=== PATIENT | male | born 1975 | race Caucasian/White ===

== ENCOUNTER 2024-05-30 12:36 | Emergency (ER) | payer OTHER, SELFPAY ==
[2024-05-30 12:38] VITALS: BP 155/94
--- NOTE | 2024-05-30 13:55 | ED.GENMED ---
History of Present Illness
General
Chief Complaint: Skin Problem
Source: patient
Exam Limitations: none
Time Seen by Provider: 05/30/24 13:03
Nursing documentation reviewed up to this point in time: agreed with
History of Present Illness
History of Present Illness:
Patient is a 49-year-old male who presents to the ER for evaluation. Patient reports yesterday he noticed a little swelling around his left nose and left face and lip area and today swelling was increased. He does feel an area of soreness in his
left nose. He has been blowing his nose a lot and also using his fingers in his nose. He denies any numbness tingling to this area. He denies any fever or chills. He denies any pain.
In addition patient reports on Tuesday he removed a deer tick from his right chest and is concerned about Lyme. He denies any joint pain rash/bull's-eye/fever chills/body aches. Denies any headache neck pain.
Past History
Past History
ED Past Medical History: None
ED Past Surgical History: None
Social History
Tobacco: Non-smoker
Personal: Single
Living: with family
Employment: Employed
Review of Systems
Review of Systems
Allergies reviewed?: Yes
All Other Systems: ROS reviewed and negative except as documented in HPI and ROS
Constitutional: Reports no symptoms; Denies fever, fatigue or chills
EENT: Reports other (swelling to left nostril region )
Respiratory: Reports no symptoms
Cardiac: Reports no symptoms
ABD/GI: Reports no symptoms
Musculoskeletal: Reports no symptoms; Denies joint pain or joint swelling
Skin: Reports other (swelling to left face/nostril ); Denies rash
Neurological: Reports no symptoms; Denies dizzy or headache
Psychiatric: Reports no symptoms
Phy Exam
General Physical Exam
General Presentation: no apparent distress
General age: appears stated age
General Skin: warm and dry
General Habitus: normal
General Mental: alert
General Hydration: appears well hydrated
ENT Exam
ENT Exam: other (interior left nares with tender raised area mildly red no drainage , mildly indurated no fluctuance mild swelling to upper lip region , adjacent left face)
Pulmonary Exam
Pulmonary Exam: other (right chest with no rash)
Neurological Exam
Neurological Exam: alert and oriented x3
Musculoskeletal Exam
Musculoskeletal Exam: full ROM
Skin Exam
Skin Exam: normal color and warm/dry
Psychiatric Exam
Psychiatric Exam: normal mood/affect
Course
Vital Signs
Initial and Last Documented VS:
Initial Vital Signs
Temp Pulse Resp BP Pulse Ox
98.3 F 74 18 155/94 99
05/30/24 12:38 05/30/24 12:38 05/30/24 12:38 05/30/24 12:38 05/30/24 12:38
Last Documented Vital Signs
Temp Pulse Resp BP Pulse Ox
98.3 F 74 18 155/94 99
05/30/24 12:38 05/30/24 12:38 05/30/24 12:38 05/30/24 12:38 05/30/24 12:38
MDM/Problems Addressed
Differential Diagnosis Includes:
MDM/Problems Addressed:
Patient presented with complaints of swelling to the left nostril area of the face and left lip since yesterday. On exam he has a small what appears to be a pimple/area that is raised with mildly induration no fluctuance to inferior left nares.
Very minimal swelling to left adjacent face and left upper lip. In addition patient reports several days ago on Tuesday he removed a tick from his right chest wall he believes it was there only for 24 hours but is not 100% sure. He has no
complaints of bodyaches joint pain or swelling fever chills rash. Will give 1 prophylactic dose of doxycycline 200 mg which will cover for tick exposure and treat small nasal abscess/pimple and will DC back on 100 mg twice a day for the next 7 days.
Discussed close outpatient follow-up with family doctor and ENT as needed he is to return if any worsening of symptoms.
*Pulse Oximetry
Patient hypoxic: no
*Critical Care Note
Total Time (30-74mins, 75-104mins- exclusive of procedures): Not Applicable
ED Attending Note
-
Portions of this chart may have been created with voice recognition software.� Occasional wrong word or��sound alike� substitutions may have occurred due to the inherent limitations of voice recognition software.
Discharge Plan
Departure
Patient Disposition: Home (Routine Discharge)
Date of Disposition: 05/30/24
Time of Disposition: 14:11
Patient with high blood pressure during this ER visit?: Yes
Covid-19: Not Applicable
Discharge Problem:
Abscess, tick exposure
Instructions: Skin Abscess
Prescriptions:
New
doxycycline hyclate 100 mg capsule
100 mg PO BID Qty: 14 0RF
No Action
oxycodone-acetaminophen 5 MG/325 MG tablet
1 tab PO .Q4-6HPRN PRN (Reason: pain) Qty: 20 0RF
cephalexin 500 MG capsule
500 mg PO TID Qty: 30 0RF
Referrals:
Loi Soto MD [Family Provider] -
Trevor Garcia MD [Active] -
Activity Restrictions/Additional Instructions:
As discussed you were given a one-time dose of doxycycline 200 mg to cover for tick exposure. You may follow-up with family doctor for additional Lyme testing if needed.
In addition you were given a prescription for 100 mg of doxycycline twice a day to treat area of swelling in the nostril small abscess/pimple.
Warm compresses to this area several times a day and take antibiotic as discussed. Follow-up with family doctor the next of days and ENT as needed. Return if any worsening of symptoms or increased swelling redness drainage fever chills or any
further concerns
Interventions
Interventions:
*General Assessment Last Done: 05/30/24 12:38
Discharge Date and Time
Print Language: [place]
[2024-05-30 14:02] VITALS: BMI 30.7
[2024-05-30] MEDS: VIBRAMYCIN 200 MG PO (14:08)
[2024-05-30 14:20] VITALS: BP 150/92
== END 2024-05-30 14:36 | disposition home or self-care (01) ==
LOC: EMR 12:36
PROVIDERS: EMERGENCY PHYSICIAN Student in an Organized Health Care Education/Training Program; FAMILY PHYSICIAN Family Medicine
DX: J34.0 Abscess, furuncle and carbuncle of nose (principal); W57.XXXA Bitten or stung by nonvenomous insect and other nonvenomous arthropods, initial encounter; R03.0 Elevated blood-pressure reading, without diagnosis of hypertension; Z88.0 Allergy status to penicillin
CPT/HCPCS: 99283